=== PATIENT | male | born 1970 | race Caucasian/White ===

== ENCOUNTER 2020-05-22 10:06 | Day surgery (SDC) | payer OTHER ==
--- NOTE | 2020-05-22 08:26 | HP ---
DATE OF SURGERY: 05/22/2020 HISTORY OF PRESENT ILLNESS: The patient is a 50 year old with prior history of ventral hernia now past six to eight months with increased bulge, some aches with pushing. It is felt he had a recurrent epigastric ventral hernia and would benefit from repair. PAST MEDICAL HISTORY: Hypertension. PAST SURGICAL HISTORY: Right ankle surgery. Right knee surgery. Back surgery. Three hernia repairs in the past by Dr. Avani eclaya in 2010. MEDICATIONS: Lisinopril. ALLERGIES: PENICILLIN. FAMILY HISTORY: Negative in regards to this problem. SOCIAL HISTORY: Chews tobacco. Denies current smoking. REVIEW OF SYSTEMS: Fourteen systems reviewed. No chest pain or palpitations. Other systems negative or noncontributory as above and per preadmission questionnaire. PHYSICAL EXAMINATION: GENERAL: No acute distress. HEENT: Sclerae nonicteric. NECK: No JVD. CHEST: Equal excursion, nonlabored breathing. CVS: Regular rate and rhythm. ABDOMEN: Soft. He has epigastric ventral hernia. I feel he would benefit from repair. No bowel strangulation currently. EXTREMITIES: No cyanosis or edema. NEURO: Alert, moving extremities symmetrically. No gross motor deficits noted. PSYCH: Appropriate mood and affect. SKIN: Dry, intact. IMPRESSION: Recurrent epigastric ventral hernia. I feel the patient would benefit from repair. Discussed options of laparoscopic, possible open. Risks and benefits explained in detail but not limited to bleeding or infection. Risk of trocar injury or hernia. Risk of recurrent hernia. Risk of adhesion, scar formation or obstruction. Risks of aches, pain, burning or numbness possible terminal operations manager or chronic in nature. Overall risk of hernia recurrence. Possibility if he has mesh repair in the past and the mesh is completely crinkled might require removal versus just repair of the new hernia with an additional piece of mesh. Remote risk of mesh fracture or failure possibly creating issues with viscera or other structures, possibly requiring other procedures. General risk of anesthesia, deep venous thrombosis, pulmonary embolism, pneumonia. Perioperative risk of aches, pains, bloating or constipation but not limited to. Possible need for open procedure depending on operative findings. He understands and agrees with the planned procedure, will proceed with laparoscopic repair of recurrent incarcerated ventral hernia with mesh.
[~2020-05-22 10:06] MED LIST: CLINDAMYCIN-D5W 900 MG/50 ML*** 900 MG/50 ML BAG IV ONE; CLINDAMYCIN-D5W 900 MG/50 ML*** 900 MG/50 ML BAG IV SCH; Lactated Ringers 1,000 ML IV ONE; Lactated Ringers 1,000 ML IV SCH; Sensorcaine 0.25% 10 ML ONE
[2020-05-22] MEDS ORDERED: Versed 2 MG/2 ML Injection ONE (11:51)
[2020-05-22] MEDS ORDERED: BRIDION 200MG/2ML IV ONE (11:51)
[2020-05-22] MEDS ORDERED: Zofran 4 MG/2 ML VIAL ONE (11:51)
[2020-05-22] MEDS ORDERED: Zemuron 100 MG/10 ML ONE (11:51)
[2020-05-22] MEDS ORDERED: Xylocaine-Mpf 2% 5 Ml Vial ONE (11:51)
[2020-05-22] MEDS ORDERED: DIPRIVAN 200 MG/20 ML IV ONE (11:51)
[2020-05-22] MEDS ORDERED: SUBLIMAZE 250 MCG/5 ML ONE (11:51)
[2020-05-22] MEDS ORDERED: Decadron 4 MG INJ ONE (11:51)
[2020-05-22] MEDS ORDERED: TORAdol 30 mg Injection ONE (11:51)
[2020-05-22] MEDS ORDERED: Hydromorphone 1 mg/ml Injection ONE (13:44)
[2020-05-22] MEDS ORDERED: SUBLIMAZE 100 MCG/2 ML ONE (13:44)
[2020-05-22 15:19] VITALS: O2SAT 93
[2020-05-22 15:40] VITALS: BP 143/84; PULSE 71
[2020-05-22 15:45] LABS: Appearance CLEAR (CLEAR); Bilirubin NEGATIVE (NEGATIVE); Blood SMALL Ery/ul (0-5); Glucose NEGATIVE (NEGATIVE); Hyaline Casts 0-2 /LPF (0-2); Ketones NEGATIVE (NEGATIVE); Leukocyte Esterase NEGATIVE (NEGATIVE); Nitrite NEGATIVE (NEGATIVE); Protein,Urine Dip NEGATIVE (Negative); RBC 0-2 /HPF (0-2); Specific Gravity 1.018 (1.005-1.025); Urobilinogen NEGATIVE mg/dL (0-1)
--- NOTE | 2020-05-23 11:15 | OP ---
SURGERY DATE/TIME: 05/22/2020 1052 PREOPERATIVE DIAGNOSIS: Recurrent incarcerated ventral hernia (prior repair by another surgeon in the past). POSTOPERATIVE DIAGNOSIS: Recurrent incarcerated ventral hernia (prior repair by another surgeon in the past). PROCEDURE: Laparoscopic repair of recurrent incarcerated ventral hernia repair with mesh. SURGEON: Dr. Sammy Cherry. ANESTHESIA: General. ESTIMATED BLOOD LOSS: Minimal. INDICATIONS: As noted above. Risks and benefits explained in detail and not limited to and consent obtained. Site was confirmed with the patient in the preoperative holding area. DESCRIPTION OF PROCEDURE AND FINDINGS: He was taken to the operating room. General anesthesia induced. Abdomen prepped and draped in usual sterile fashion. After official time out and no disagreement with planned procedure, a transverse incision made in the lower epigastrium. Fascia grasped pulled upward. Veress needle inserted and tested with saline. Pneumoperitoneum accomplished opening pressure 0 to 15. After insufflating without difficulty, a 5 mm bladeless port and camera inserted in the left upper quadrant followed by a left mid-abdomen 5 mm port, 5 mm left lower quadrant port under direct vision of the camera as well as another right side abdomen port. He had extensive omentum and preperitoneal fat incarcerated up in the ventral hernia defect this was moderately large incarceration and took some time but slowly and carefully mobilized the incarcerated fat out of the top edge of the prior hernia repair. His prior mesh that had been placed years ago by another surgeon appeared to be fairly well incorporated. It was felt that it would do more damage taking this mesh out and leaving it in place. This helped the current hernia benefit from repair not only with sutures bringing the weakened fascia back to the midline but also mesh repair. After waiting for the spinal needle to become available and waiting for the suture, the size of the defect was measured to allow for adequate overlap in all directions avoiding any undo extensively large piece of mesh. It was felt that size [address] mesh most appropriate size. It was carefully placed four quadrants with 0 Ethibond stay sutures and 0 Vicryl in the center and the straps had been discontinued. After first placing some 0 PDS through a small incision overlying the defect the defect was in the lower epigastrium. Suture passer used to pass #1 PDS in interrupted fashion on either side of the defect. Transfascial sutures these were tagged temporarily and 11/12 port was then placed through the defect allowing the wetted Ventralex ST coated mesh to be carefully rolled and passed through. The port was removed. The transfacial PDS #1 sutures were carefully transfixed bringing the defect back to the midline in tension-free manner with pressure turned down to 8. The suture passer then pulled up, the Vicryl centering the mesh at the defect with a four quadrant 0 Ethibond stay sutures were pulled up through separate stab wounds. It should be noted that the left lateral one had some venous ooze necessary to place temporary 3-0 PDS suture and later removed. Transfascial with 0 Ethibond carefully pulled up with suture passer and secured. The mesh was nice and flat in tension-free manner. It was tacked around the edges about 1 cm apart with the CapSure tacker with aid of right-sided 5 mm port. The staff had already opened SorbaFix tacker this was used centrally to reduce seromal formation. Mesh was nice and flat in tension-free manner. It had good overlap in all directions. Good hemostasis noted. There had been no evidence of any issues with any other structures or viscera. 0.25% Marcaine local had been injected along the fascia along the skin incision. Pneumoperitoneum decompressed. It was irrigated out. Skin incision closed with 4-0 Vicryl. Steri-Strips and sterile dressing applied. The one oozing on the left lateral stab wound where the Ethibond had been placed appeared to have good hemostasis. The skin was closed with 4-0 Vicryl. Otherwise, the skin incision and port sites closed with 4-0 Vicryl. Steri-Strips and sterile dressing applied. The patient was given abdominal binder. He was transferred to recovery in stable condition. Findings discussed with family over the phone. He is to avoid any heavy lifting, pushing, pulling and straining for the next six to eight weeks. I will see him back in the office in the next week or two. He can shower.
== END 2020-05-22 15:35 | disposition home or self-care (01) ==
LOC: SDC 10:06
PROVIDERS: ATTEND Surgery
DX: K43.0 Incisional hernia with obstruction, without gangrene (principal); I10 Essential (primary) hypertension; Z79.899 Other long term (current) drug therapy
CPT/HCPCS: 49566; 49568; 81001; 87086; C1781; J1100; J1170; J1885; J2250; J2405; J2704; J3010; L0625